=== PATIENT | male | born 1995 | race Caucasian/White ===

== ENCOUNTER 2021-03-27 17:55 | Emergency (ER) | payer OTHER ==
[~2021-03-27] VITALS: Ht 170.2 cm; Wt 90.7 kg
== END 2021-03-27 22:15 | disposition home or self-care (01) ==
LOC: ER 17:55
DX: S43.015A Anterior dislocation of left humerus, initial encounter (principal); Z87.891 Personal history of nicotine dependence; W10.9XXA Fall (on) (from) unspecified stairs and steps, initial encounter
CPT/HCPCS: 23650; 73030; 96374-59; 96375-59; 99283-25; J2270; J2405